=== PATIENT | male | born 1950 | race Caucasian/White ===

== ENCOUNTER → 2024-06-27 09:53 | Outpatient (CLI) | payer MEDICARE, OTHER, SELFPAY ==
[2024-06-27 18:46] LABS: Alanine Aminotransferase 21 IU/L (<50); Albumin 4.6 g/dL (3.5-5.0); Albumin Globulin Ratio 1.7 (1.0-2.8); Alkaline Phosphatase 75 U/L (38-126); Aspartate Aminotransferase 28 IU/L (17-59); BUN Creatinine Ratio 23.3 (6-22); Bilirubin Total 1.4 mg/dL (0.2-1.3); Blood Urea Nitrogen 20 mg/dL (9-20); Calcium 10.3 mg/dL (8.4-10.2); Carbon Dioxide 26 mmol/L (22-32); Chloride 104 mmol/L (98-107); Cholesterol 213 mg/dL (140-199); Estimated Glomerular Filt Rate > 60 mL/min (>60); Globulin 2.7 g/dL (1.7-4.1); Glucose 96 mg/dL (80-110); HEMOLYSIS < 15 (0-50); Potassium 4.9 mmol/L (3.4-5.1); Sodium 138 mmol/L (137-145); Total Protein 7.3 g/dL (6.3-8.2); Triglycerides 44 mg/dL (35-150)
[2024-06-27 19:00] LABS: Add Manual Diff / Slide Review NO; Basophils Absolute Auto 0 /uL (0-100); Basophils Percent Auto 0.9 % (0-2); Eosinophils Absolute Auto 500 /uL (0-450); Eosinophils Percent Auto 11.9 % (2-4); Lymphocytes Absolute Auto 1000 /uL (1100-4500); Lymphocytes Percent Auto 25.6 % (25-40); Mean Corpuscular HGB Conc 33.4 % (30-36); Mean Corpuscular Hemoglobin 32.3 PG (26-34); Mean Corpuscular Volume 96.6 fL (80-100); Monocytes Absolute Auto 400 /uL (0-900); Monocytes Percent Auto 11.3 % (3-14); Neutrophils Absolute Auto 2000 /uL (1500-7000); Neutrophils Percent Auto 50.3 % (50-75); Platelet Count 222 X10^3/uL (150-400); Red Blood Cell Count 4.34 X10^6/uL (4.5-5.9); Red Cell Distribution Width 13.3 % (11.6-14.8); White Blood Cell Count 3.9 X10^3/uL (4.5-11.0)
[2024-06-27 19:03] LABS: HDL Cholesterol 136 mg/dL (40-60); LDL Cholesterol Calculated 68 mg/dL (<100)
[2024-06-27 19:17] LABS: Prostate Specific Antigen Scrn 1.24 ng/mL (0.1-4.0)
== END ==
PROVIDERS: PCP Family Medicine; Visit Provider Physician Assistant
DX: R23.3 Spontaneous ecchymoses (principal); Z13.6 Encounter for screening for cardiovascular disorders; Z12.5 Encounter for screening for malignant neoplasm of prostate; L29.9 Pruritus, unspecified; I10 Essential (primary) hypertension
CPT/HCPCS: 80053; 80061; 85025; G0103

== ENCOUNTER → 2024-12-18 10:20 | Outpatient (CLI) | payer MEDICARE, OTHER, SELFPAY ==
[2024-12-18 19:34] LABS: Add Manual Diff / Slide Review NO; Hematocrit 41.9 % (41-53); Hemoglobin 14.3 g/dL (13.5-17.5); Lymphocytes Absolute Auto 900 /uL (1100-4500); Mean Corpuscular HGB Conc 34.2 % (30-36); Mean Corpuscular Hemoglobin 32.5 PG (26-34); Mean Corpuscular Volume 94.9 fL (80-100); Platelet Count 185 X10^3/uL (150-400)
[2024-12-18 19:49] LABS: Alanine Aminotransferase 20 IU/L (<50); Albumin 4.5 g/dL (3.5-5.0); Albumin Globulin Ratio 1.5 (1.0-2.8); Alkaline Phosphatase 72 U/L (38-126); Blood Urea Nitrogen 18 mg/dL (9-20); Calcium 9.9 mg/dL (8.4-10.2); Carbon Dioxide 26 mmol/L (22-32); Chloride 102 mmol/L (98-107); Cholesterol 188 mg/dL (140-199); Estimated Glomerular Filt Rate > 60 mL/min (>60); Globulin 3.1 g/dL (1.7-4.1); Glucose 95 mg/dL (70-99); HEMOLYSIS < 15 (0-50); Potassium 4.5 mmol/L (3.4-5.1); Sodium 137 mmol/L (137-145); Total Protein 7.6 g/dL (6.3-8.2); Triglycerides 75 mg/dL (35-150)
[2024-12-18 20:02] LABS: HDL Cholesterol 119 mg/dL (40-60)
== END ==
PROVIDERS: PCP Physician Assistant; Visit Provider Physician Assistant
DX: Z12.5 Encounter for screening for malignant neoplasm of prostate (principal); Z13.6 Encounter for screening for cardiovascular disorders; Z79.899 Other long term (current) drug therapy; I10 Essential (primary) hypertension; R23.3 Spontaneous ecchymoses; M54.9 Dorsalgia, unspecified; G89.29 Other chronic pain
CPT/HCPCS: 80053; 80061; 85025; G0103

== ENCOUNTER → 2024-12-21 09:09 | Outpatient (CLI) | payer MEDICARE, OTHER, SELFPAY ==
--- NOTE | 2024-12-21 09:11 | DI.US.S_ITS ---
PROCEDURE: US HERNIA INDICATIONS: LEFT INGUINAL HERNIA TECHNIQUE: Real-time focused scanning was performed of the abdomen, with image documentation. COMPARISON: None. FINDINGS: In the area of palpable abnormality, there is shadowing from bowel gas protruding into the subcutaneous fat through a widened inguinal ring measuring roughly 2.6 x 2.4 cm. Through this defect, there is mobile, herniated fat, increased with Valsalva maneuver. No visible fluid in the hernia sac. Is uncertain if reduction attempt was made. IMPRESSION: Fat, and possibly bowel containing left inguinal hernia. Preliminary report conveyed by the financial compliance officer to the ordering provider. Dictated by: Linda Goyal M.D. on 12/21/2024 at 10:13 Approved by: Linda Goyal M.D. on 12/21/2024 at 10:23
== END ==
LOC: US 09:10
PROVIDERS: PCP Physician Assistant; Referring Provider Physician Assistant; Visit Provider Physician Assistant
DX: K40.90 Unilateral inguinal hernia, without obstruction or gangrene, not specified as recurrent (principal)
CPT/HCPCS: 76705

== ENCOUNTER 2024-12-21 10:04 | Emergency (ER) | payer MEDICARE, OTHER, SELFPAY ==
[2024-12-21 10:34] VITALS: BP 139/71; PULSE 66; RESP 20; TEMP 36.6; O2SAT 96; BMI 21.7
--- NOTE | 2024-12-21 11:34 | ED.ABDPAIN ---
HPI - Abdominal Pain <Ilene Mike PA-C - Last Filed: 12/21/24 13:38> General Chief Complaint: Abdominal Pain Stated Complaint: Sent by radiology hernia Time Seen by Provider: 12/21/24 11:03 Source: patient Mode of arrival: Ambulatory History of Present Illness HPI narrative: Mr. 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 Patient states that he has had this hernia for about 1 year however over the last month it has gotten much larger. Patient denies any known inciting event. States that the hernia is bulging out the majority of the times but there are sometimes mornings when he wakes up and it is flat. It is not extremely painful, he is having normal urination and bowel movements, no fevers, no chills, no chest pain, shortness of breath or other concerns. He is allergic to hydrochlorothiazide. Lives on [facility] [facility]. Related Data Home Medications ?Medication ?Instructions ?Recorded ?Confirmed amlodipine 10 mg tablet 10 mg PO DAILY 12/10/24 12/10/24 Previous Rx's ?Medication ?Instructions ?Recorded hydrocodone 5 mg-acetaminophen 325 1 tab PO BID PRN pain (scale score 12/10/24 mg tablet 7-10) #60 tabs Allergies Allergy/AdvReac Type Severity Reaction Status Date / Time hydrochlorothiazide Allergy Intermediate rash , Verified 12/21/24 10:34 itchy Review of Systems <Ilene Mike PA-C - Last Filed: 12/21/24 13:38> Review of Systems ROS Unobtainable: All systems reviewed & are unremarkable except as noted in HPI and below Patient History <Ilene Mike PA-C - Last Filed: 12/21/24 13:38> Social History Smoking Status: Never smoker Smoking Status: Never smoker Exam <Ilene Mike PA-C - Last Filed: 12/21/24 13:38> Narrative Exam Narrative: GENERAL: 73 year old patient appears stated age. Well-developed patient, in no acute distress. HEAD: Atraumatic. Normocephalic. EYES: No scleral icterus. No injection or drainage. NECK: Trachea midline. Cervical ROM intact. CARDIOVASCULAR: Regular rate and rhythm. RESPIRATORY: ?Nonlabored respirations. ?Speaking in clear, full sentences. ?Clear to auscultation. Breath sounds equal bilaterally. No wheezes, rales, or rhonchi. ? GASTROINTESTINAL: Abdomen soft, non-tender, nondistended. There is a bulging left inguinal hernia that is soft but not easily reducible on 1st attempt. No overlying erythema or increased warmth. EXTREMITIES: No LE edema. NEURO: AOx3. ?Clear speech. ?Moves all 4 extremities appropriately. Ambulatory. SKIN: No rash or erythema of visible areas Initial Vital Signs Initial Vital Signs: Vital Signs Temperature 98 F 12/21/24 10:34 Pulse Rate 66 12/21/24 10:34 Respiratory Rate 20 12/21/24 10:34 Blood Pressure 139/71 12/21/24 10:34 Pulse Oximetry 96 12/21/24 10:34 Oxygen Delivery Method Room Air 12/21/24 10:34 <Isela Trevino DO - Last Filed: 12/22/24 07:45> Initial Vital Signs Initial Vital Signs: Vital Signs Temperature 98 F 12/21/24 10:34 Pulse Rate 66 12/21/24 10:34 Respiratory Rate 20 12/21/24 10:34 Blood Pressure 139/71 12/21/24 10:34 Pulse Oximetry 96 12/21/24 10:34 Oxygen Delivery Method Room Air 12/21/24 10:34 Course <Ilene Mike PA-C - Last Filed: 12/21/24 13:38> Orders Ordered: ED Orders 12/21/24 11:30 Complete Blood Count AUTO DIFF Stat Comprehensive Metabolic Panel Stat Lactate (Lactic Acid) Stat Lipase Stat 12/21/24 11:39 CT abdomen pelvis w con Stat Vital Signs Vital signs: Vital Signs - 8 hr 12/21/24 10:34 12/21/24 13:31 Temperature 98 F 98.5 F Pulse Rate 66 69 Respiratory Rate 20 19 Blood Pressure 139/71 169/90 H Pulse Oximetry 96 98 Oxygen Delivery Method Room Air Room Air <DO Armando Yi Last Filed: 12/22/24 07:45> Orders Ordered: ED Orders 12/21/24 11:30 Complete Blood Count AUTO DIFF Stat Comprehensive Metabolic Panel Stat Lactate (Lactic Acid) Stat Lipase Stat 12/21/24 11:39 CT abdomen pelvis w con Stat Vital Signs Vital signs: Vital Signs - 8 hr 12/21/24 10:34 12/21/24 13:31 Temperature 98 F 98.5 F Pulse Rate 66 69 Respiratory Rate 20 19 Blood Pressure 139/71 169/90 H Pulse Oximetry 96 98 Oxygen Delivery Method Room Air Room Air MDM - Abdominal Pain <Ilene Mike PA-C - Last Filed: 12/21/24 13:38> Medical Records Attestation: I reviewed the patient's medical records. Lab Data 12/21/24 11:30 12/21/24 11:30 Labs: Lab Results 12/21/24 Range/Units 11:30 WBC 3.0 L (4.5-11.0) X10^3/uL RBC 4.44 L (4.5-5.9) X10^6/uL Hgb 14.2 (13.5-17.5) g/dL Hct 41.8 (41-53) % MCV 94.1 (80-100) fL MCH 32.0 (26-34) PG MCHC 34.0 (30-36) % RDW 12.9 (11.6-14.8) % Plt Count 193 (150-400) X10^3/uL Neut % (Auto) 48.1 L (50-75) % Lymph % (Auto) 33.9 (25-40) % [place] % (Auto) 13.4 (3-14) % Eos % (Auto) 3.6 (2-4) % Baso % (Auto) 1.0 (0-2) % Neut # (Auto) 1500 (9193-0715) /uL Lymph # (Auto) 1000 L (3107-1513) /uL [place] # (Auto) 400 (0-900) /uL Eos # (Auto) 100 (0-450) /uL Baso # (Auto) 0 (0-100) /uL Sodium 139 (137-145) mmol/L Potassium 4.3 (3.4-5.1) mmol/L Chloride 105 (98-107) mmol/L Carbon Dioxide 25 (22-32) mmol/L BUN 31 H (9-20) mg/dL Creatinine 0.70 (0.66-1.25) mg/dL Estimated GFR > 60 (>60) mL/min BUN/Creatinine Ratio 44.3 H (6-22) Glucose 84 (70-99) mg/dL Lactate 1.0 (0.7-2.1) mmol/L Calcium 9.8 (8.4-10.2) mg/dL Total Bilirubin 1.5 H (0.2-1.3) mg/dL AST 32 (17-59) IU/L ALT 22 (<50) IU/L Alkaline Phosphatase 73 (38-126) U/L Total Protein 8.3 H (6.3-8.2) g/dL Albumin 4.8 (3.5-5.0) g/dL Globulin 3.5 (1.7-4.1) g/dL Albumin/Globulin Ratio 1.4 (1.0-2.8) Lipase 94 (23-300) U/L Point of care testing: Urine Dip Bedside Urine Glucose Negative Bedside Urine Bilirubin - Negative Bedside Urine Ketone - Negative Urine Specific [place] 1.015 Bedside Urine Occult Blood - Negative Bedside Urine pH 6.0 Bedside Urine Protein - Negative Bedside Urine Urobilinogen +/- 1mg Bedside Urine Nitrite - Negative Bedside Urine Leukocytes - Negative Esterase Imaging Data CT Abd/Pelvis: Radiologist's Impression: PROCEDURE: CT ABDOMEN PELVIS W CON INDICATIONS: increasing size L inguinal hernia TECHNIQUE: After the administration of intravenous contrast, axial sections acquired from the lung bases to the pubic symphysis. Coronal and sagittal reformats were performed. For radiation dose reduction, the following was used: automated exposure control, adjustment of mA and/or kV according to patient size. COMPARISON: [facility], , HERNIA, 12/21/2024, 9:49. FINDINGS: Image quality: Diagnostic. Lower Chest: No significant findings. ABDOMEN: Liver: No solid mass. Gallbladder: No radiopaque gallstones or wall thickening. Biliary ducts: No biliary dilation. Pancreas: No ductal dilation. Spleen: Size is within normal limits. Adrenal Glands: No adrenal nodules. Kidneys and Ureters: No hydronephrosis. No solid mass. No complex renal cystic lesion which requires follow up. Stomach and Bowel: Normal colonic caliber, without significant wall thickening. Normal appendix. A large left inguinal hernia contains sigmoid. There is minimal inflammatory change in the wall of the sigmoid as it enters the hernia. The sigmoid within the hernia is otherwise noninflamed. Peritoneum: No abnormal intraperitoneal fluid. No free air. Ventral Wall: No significant ventral hernia. Abdominal Nodes: No retroperitoneal or mesenteric adenopathy by size criteria. Vessels: Aorta and inferior vena cava are normal in size. PELVIS: Pelvic Organs: Mild prostatomegaly. Bladder: Bladder wall is not thickened. There is a prominent right bladder diverticulum which contains a bladder stone within the diverticulum. Pelvic Nodes: No enlarged lymph nodes. Miscellaneous: Large left inguinal hernia containing sigmoid. Sigmoid colon extends almost into the scrotum. There is minimal wall edema on entrance of the bowel into the hernia. The bowel within the hernia is otherwise noninflamed. Bones: No aggressive osseous abnormality. Lumbar degenerative change. IMPRESSION: 1. Large left inguinal hernia containing sigmoid which extends nearly down into the scrotum. There is mild wall edema in the sigmoid as it enters the hernia sac through the abdominal wall defect. The sigmoid is otherwise noninflamed. 2. There is a right bladder diverticulum containing a bladder stone. The bladder wall is not thickened. Dictated by: Joe Levine M.D. on 12/21/2024 at 12:13 Approved by: Joe Levine M.D. 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 Differential diagnosis includes but is not limited to reducible inguinal hernia, nonreducible inguinal hernia, incarcerated hernia, strangulated hernia, etc. On exam patient is in no acute distress, nontoxic-appearing all vital signs within normal limits. Has a bulging, prominent left inguinal hernia that is soft, not overly tender, however I am not able to easily reduce it. Outpatient ultrasound concerning for bowel containing hernia, we will obtain labs including lactic and a CT abdomen pelvis with IV contrast. CT reveals large left inguinal hernia containing sigmoid colon which extends nearly down into the scrotum. There is mild wall edema in the sigmoid as it enters the hernia sac through the abdominal wall defect. The sigmoid is otherwise noninflamed. There is also a right bladder diverticulum containing a bladder stone. The bladder wall is not thickened. Labs reveal decreased WBC count 3.0, hemoglobin 14.2 hematocrit 41.8. Normal sodium 139 potassium 4.3, BUN is elevated at 31, normal creatinine 0.70. Total bilirubin slightly elevated 1.5. Normal lactate 1.0. Normal lipase 94. Point of care urinalysis is negative for infection. After being placed in Trendelenburg with ice applied to the hernia, Dr. Trevino was easily able to fully reduce the hernia. ED return precautions were discussed with the patient at the bedside by the attending physician. Recommended avoiding heavy lifting, straining, wearing abdominal binder, following up with surgery for elective repair, and returning the ED with any new or worsening symptoms, hernia that can not be pushed back in, redness, fevers, pain, etc. Patient states he has not interested in surgery until after January 19 as he will be traveling. Discussed strict ER return precautions with the patient, supportive care, follow up PCP. Patient verbalized understanding of all information is agreeable with the plan, he is ambulatory and stable for discharge home. <Isela Trevino, DO - Last Filed: 12/22/24 07:45> Lab Data Labs: Lab Results 12/21/24 Range/Units 11:30 WBC 3.0 L (4.5-11.0) X10^3/uL RBC 4.44 L (4.5-5.9) X10^6/uL Hgb 14.2 (13.5-17.5) g/dL Hct 41.8 (41-53) % MCV 94.1 (80-100) fL MCH 32.0 (26-34) PG MCHC 34.0 (30-36) % RDW 12.9 (11.6-14.8) % Plt Count 193 (150-400) X10^3/uL Neut % (Auto) 48.1 L (50-75) % Lymph % (Auto) 33.9 (25-40) % [place] % (Auto) 13.4 (3-14) % Eos % (Auto) 3.6 (2-4) % Baso % (Auto) 1.0 (0-2) % Neut # (Auto) 1500 (8239-9010) /uL Lymph # (Auto) 1000 L (9504-8941) /uL [place] # (Auto) 400 (0-900) /uL Eos # (Auto) 100 (0-450) /uL Baso # (Auto) 0 (0-100) /uL Sodium 139 (137-145) mmol/L Potassium 4.3 (3.4-5.1) mmol/L Chloride 105 (98-107) mmol/L Carbon Dioxide 25 (22-32) mmol/L BUN 31 H (9-20) mg/dL Creatinine 0.70 (0.66-1.25) mg/dL Estimated GFR > 60 (>60) mL/min BUN/Creatinine Ratio 44.3 H (6-22) Glucose 84 (70-99) mg/dL Lactate 1.0 (0.7-2.1) mmol/L Calcium 9.8 (8.4-10.2) mg/dL Total Bilirubin 1.5 H (0.2-1.3) mg/dL AST 32 (17-59) IU/L ALT 22 (<50) IU/L Alkaline Phosphatase 73 (38-126) U/L Total Protein 8.3 H (6.3-8.2) g/dL Albumin 4.8 (3.5-5.0) g/dL Globulin 3.5 (1.7-4.1) g/dL Albumin/Globulin Ratio 1.4 (1.0-2.8) Lipase 94 (23-300) U/L Point of care testing: Urine Dip Bedside Urine Glucose Negative Bedside Urine Bilirubin - Negative Bedside Urine Ketone - Negative Urine Specific [place] 1.015 Bedside Urine Occult Blood - Negative Bedside Urine pH 6.0 Bedside Urine Protein - Negative Bedside Urine Urobilinogen +/- 1mg Bedside Urine Nitrite - Negative Bedside Urine Leukocytes - Negative Esterase Discharge Plan Departure Patient Disposition: Home Clinical Impression: Reducible left inguinal hernia, Bladder stone Instructions: DI for Groin Hernia Activity Restrictions/Additional Instructions: Dear Mr. Leon, Thank you for coming to the emergency room. Today you were evaluated for a left inguinal hernia. CT scan reveals that his hernia is large and contains sigmoid colon, however Dr. Trevino was easily able to reduce this hernia. At this time the hernia is not strangulated or incarcerated. You will need to follow up with a general surgeon to have elective hernia repair. If the hernia becomes extremely painful, can not be pushed back in, becomes red or inflamed, you develop fevers vomiting difficulty with bowel movements or any other concerns, you need to go to an emergency room immediately. Please avoid heavy lifting, straining, and wear a compressive wrap around her hernia to prevent it from bulging out. Please follow up with your primary care doctor within the next 2-3 days for ER follow-up. (If you do not have a PCP you can call [phone]. ?to schedule an appointment with an [facility] Primary Care Provider) IF YOU DEVELOP ANY NEW OR WORSENING SYMPTOMS, RETURN TO THE ER! Please read the attached instructions, they highlight more specific treatments and interventions for you at home. Thank you for letting me participate in your care, Ilene Mike PA-C Prescriptions: No Action hydrocodone-acetaminophen 5-325 mg tablet 1 tab PO BID PRN (Reason: pain (scale score 7-10)) Qty: 60 0RF Rx Instructions: Take with food and water. amlodipine 10 mg tablet 10 mg PO DAILY Referrals: Emery Flaherty MD [Physician, General Surgery] Referral Note: Left Inguinal Hernia Emmanuelle Rivas PA-C [Primary Care Provider, Medical] Stand Alone Forms: Patient Portal/API ED Sign-out <Isela Trevino, - Last Filed: 12/22/24 07:45> Cosign ED Attending Cosignature Attestation: Patient is seen evaluated by myself at bedside has a nontender inguinal hernia which is easily reduced in Trendelenburg and with an ice pack. Patient did not require any pain medication. Discussion with patient about when to return to any emergency department I was available for consultation.
--- NOTE | 2024-12-21 11:39 | DI.CT.S_ITS ---
PROCEDURE: CT ABDOMEN PELVIS W CON INDICATIONS: increasing size L inguinal hernia TECHNIQUE: After the administration of intravenous contrast, axial sections acquired from the lung bases to the pubic symphysis. Coronal and sagittal reformats were performed. For radiation dose reduction, the following was used: automated exposure control, adjustment of mA and/or kV according to patient size. COMPARISON: [facility], , HERNIA, 12/21/2024, 9:49. FINDINGS: Image quality: Diagnostic. Lower Chest: No significant findings. ABDOMEN: Liver: No solid mass. Gallbladder: No radiopaque gallstones or wall thickening. Biliary ducts: No biliary dilation. Pancreas: No ductal dilation. Spleen: Size is within normal limits. Adrenal Glands: No adrenal nodules. Kidneys and Ureters: No hydronephrosis. No solid mass. No complex renal cystic lesion which requires follow up. Stomach and Bowel: Normal colonic caliber, without significant wall thickening. Normal appendix. A large left inguinal hernia contains sigmoid. There is minimal inflammatory change in the wall of the sigmoid as it enters the hernia. The sigmoid within the hernia is otherwise noninflamed. Peritoneum: No abnormal intraperitoneal fluid. No free air. Ventral Wall: No significant ventral hernia. Abdominal Nodes: No retroperitoneal or mesenteric adenopathy by size criteria. Vessels: Aorta and inferior vena cava are normal in size. PELVIS: Pelvic Organs: Mild prostatomegaly. Bladder: Bladder wall is not thickened. There is a prominent right bladder diverticulum which contains a bladder stone within the diverticulum. Pelvic Nodes: No enlarged lymph nodes. Miscellaneous: Large left inguinal hernia containing sigmoid. Sigmoid colon extends almost into the scrotum. There is minimal wall edema on entrance of the bowel into the hernia. The bowel within the hernia is otherwise noninflamed. Bones: No aggressive osseous abnormality. Lumbar degenerative change. IMPRESSION: 1. Large left inguinal hernia containing sigmoid which extends nearly down into the scrotum. There is mild wall edema in the sigmoid as it enters the hernia sac through the abdominal wall defect. The sigmoid is otherwise noninflamed. 2. There is a right bladder diverticulum containing a bladder stone. The bladder wall is not thickened. Dictated by: Joe Levine M.D. on 12/21/2024 at 12:13 Approved by: Joe Levine M.D. on 12/21/2024 at 12:18
[2024-12-21 11:47] LABS: Add Manual Diff / Slide Review NO; Hematocrit 41.8 % (41-53); Hemoglobin 14.2 g/dL (13.5-17.5); Lymphocytes Absolute Auto 1000 /uL (1100-4500); Mean Corpuscular HGB Conc 34.0 % (30-36); Mean Corpuscular Hemoglobin 32.0 PG (26-34); Mean Corpuscular Volume 94.1 fL (80-100); Platelet Count 193 X10^3/uL (150-400)
[2024-12-21 11:58] LABS: Alanine Aminotransferase 22 IU/L (<50); Albumin 4.8 g/dL (3.5-5.0); Albumin Globulin Ratio 1.4 (1.0-2.8); Alkaline Phosphatase 73 U/L (38-126); Blood Urea Nitrogen 31 mg/dL (9-20); Calcium 9.8 mg/dL (8.4-10.2); Carbon Dioxide 25 mmol/L (22-32); Chloride 105 mmol/L (98-107); Estimated Glomerular Filt Rate > 60 mL/min (>60); Globulin 3.5 g/dL (1.7-4.1); Glucose 84 mg/dL (70-99); HEMOLYSIS 36 (0-50); Lactate (Lactic Acid) 1.0 mmol/L (0.7-2.1); Lipase 94 U/L (23-300); Potassium 4.3 mmol/L (3.4-5.1); Sodium 139 mmol/L (137-145); Total Protein 8.3 g/dL (6.3-8.2)
[2024-12-21 13:31] VITALS: BP 169/90; PULSE 69; RESP 19; TEMP 36.9; O2SAT 98
== END 2024-12-21 13:31 | disposition home or self-care (01) ==
PROVIDERS: Emergency Provider Physician Assistant; PCP Physician Assistant
DX: K40.90 Unilateral inguinal hernia, without obstruction or gangrene, not specified as recurrent (principal); N21.0 Calculus in bladder
CPT/HCPCS: 36415; 74177; 76705; 80053; 81003; 83605; 83690; 85025; 99283; 99284; Q9967

== ENCOUNTER 2025-01-22 10:33 | Day surgery (SDC) | payer MEDICARE, OTHER, SELFPAY ==
[2025-01-11 13:27] VITALS: BMI 23.0
--- NOTE | 2025-01-22 06:15 | PM.PREOP ---
Pre-operative Note Interval Note History & Physical reviewed/Exam performed by Physician: Yes Changes to H&P: No ASA Class (for procedural sedation): II
--- NOTE | 2025-01-22 10:45 | EKG_ITS ---
[address] [address] Test Date: 2025-01-22 Pat Name: Lan Leon Department: Room: Gender: Male Shot Peening Operator: Chloe CHERY : [id number] Requested By: Order Number: [id number] Reading MD: Kevin Craig MD Measurements Intervals [place] Rate: 85 P: 67 [place]: 182 QRS: 9 QRSD: 150 T: 47 QT: 410 QTc: 487 Interpretive Statements Normal sinus rhythm Right bundle branch block NO PRIOR TRACING Electronically Signed On 01-22-2025 16:44:31 PDT by Kevin Craig MD
[2025-01-22 10:54] VITALS: BP 154/77; PULSE 76; RESP 20; TEMP 36.6; O2SAT 99
[2025-01-22] MEDS: LACTATED RINGERS 1,000 ML 42 ML IV (11:09)
[2025-01-22] MEDS: FAMOTIDINE 20 MG/2 ML VIAL IV (11:10)
[2025-01-22] MEDS: ACETAMINOPHEN IV 1,000 MG/100 ML VIAL 400 MG IV (11:11)
[2025-01-22] MEDS: BUPivacaine 0.25% W/ EPI (PF) 30 ML VIAL 60 ML INJ (12:19)
--- NOTE | 2025-01-22 12:20 | SUR.OPER ---
Supine on padded OR bed, head on pillow, arms secured on padded arm boards at <90 degrees abduction, legs uncrossed, safety belt at thigh, tape over blanket over lower legs.
[2025-01-22 13:15] VITALS: BP 154/72; PULSE 61; RESP 16; TEMP 36.3; O2SAT 96
--- NOTE | 2025-01-22 13:18 | PM.OP.1 ---
Operative Date/Time/Diagnoses Date of procedure: 01/22/25 Time of procedure: 13:18 Pre-op diagnosis: Left inguinal hernia Post-op diagnosis: same (Large indirect inguinal hernia) Procedure & Clinicians Procedure: Left inguinal hernia repair with mesh, open, Geovani technique Same procedure(s) as scheduled: Yes Indications: 74yo M, CT scan with colon in left inguinal hernia sac Surgeon: Sudeep Duarte Assisted?: Yes Building Inspection Engineer: Bk Hastings Anesthesia Type: General Operative Notes Findings: Large indirect inguinal hernia sac, cord lipoma Closure Type: primary Specimen(s): none sent Applied: none Estimated Blood Loss (mL): 10 Blood products transfused: none Procedure in detail: After informed consent and satisfactory general endotracheal anesthesia the left groin was shaved, prepped and draped in the usual sterile manner. Surgical time-out was performed with all team members in agreement. The correct side was marked in the preoperative holding area. The patient received appropriate preoperative antibiotics and DVT prophylaxis. The skin incision was made in the left groin in a transverse manner with a 15 blade after infiltrating the skin and subcutaneous tissues with 0.5% Marcaine plain. Additional marcaine was injected into the musculature for analgesia. Cautery was used to divide the subcutaneous tissues in the Elizabeth's layer down to the external abdominal oblique aponeurosis. The wheatlander was used for exposure. I made a small incision in the external oblique aponeurosis, grasped the edges with hemostats and opened the fascia through the external inguinal ring taking care to avoid injury to the ilioinguinal nerve which was identified and preserved. The patient was noted to have a large indirect inguinal hernia. The cord was mobilized off the pubic bone medially and held with a Mark drain. We skeletonized the cord by dividing the cremasteric muscle fibers. The indirect inguinal hernia sac was easily identified and from the cord structures with blunt and sharp dissection. Hemostasis was achieved with cautery. Once the sac was mobilized to the internal ring we opened it to ensure there were no intraperitoneal contents and there were none so the sac was twisted and suture ligated with 2-0 silk suture x2 and the distal sac was excised and discarded. The hernia had been easily reduced after general endotracheal anesthesia. The direct floor was strong and intact. I tailored a 2 x 4 sheet of polypropylene mesh and secured the lower edge inferolaterally to the shelving edge of the inguinal ligament. This started at the pubic bone and ran laterally. I then split the tails around the cord and secured the superior medial edge of the mesh to the rectus muscle medially and the conjoined tendon laterally. The tails were brought around the internal inguinal ring and tied together with 0 Ethibond suture. The mesh was noted to lay in a flat position without kinking. It reinforced the direct floor nicely. With this, the cord structures were returned to the inguinal canal and the external abdominal oblique aponeurosis was closed with 3-0 Vicryl in a running manner taking care to avoid injury to the ilioinguinal nerve which was preserved. The Elizabeth's fascia was closed using 3-0 Vicryl running. The skin incision was closed using 4-0 Monocryl in a subcuticular manner. Dermabond glue was applied as a final dressing. The estimated blood loss was minimal. The instrument sponge and needle counts were all correct x2. The patient tolerated the procedure well and was extubated in the operating room and transported to the recovery area in stable condition. Complications: none Post-operative Condition: stable Disposition: PACU Plan for aftercare: PACU then home
[2025-01-22 13:20] VITALS: BP 136/66; PULSE 59; RESP 19; TEMP 36.3; O2SAT 96
[2025-01-22 13:26] VITALS: BP 132/63; PULSE 72; RESP 16; TEMP 36.3; O2SAT 96
[2025-01-22 13:38] VITALS: BP 128/70; PULSE 65; RESP 15; TEMP 36.3; O2SAT 97
== END 2025-01-22 14:00 | disposition home or self-care (01) ==
PROVIDERS: PCP Physician Assistant; Referring Provider Surgery; Visit Provider Surgery
PROC: (CPT 49505; principal; 2025-01-22 11:45)
DX: K40.90 Unilateral inguinal hernia, without obstruction or gangrene, not specified as recurrent (principal); Z86.79 Personal history of other diseases of the circulatory system; D17.6 Benign lipomatous neoplasm of spermatic cord
CPT/HCPCS: 49505; 93005; C1781; J0131; J0689; J1100; J2405; J2704; J3010; J3490; J7120